=== PATIENT | female | born 1970 | race Caucasian/White ===

== ENCOUNTER 2017-01-06 23:52 | Emergency (ER) | payer SELFPAY ==
[~2017-01-06] VITALS: Ht 177.8 cm; Wt 75.0 kg
[~2017-01-06 23:52] MED LIST: METH5TAB5 PO; Metoprolol Tartrate PO
[2017-01-06 23:55] VITALS: BP 150/76; PULSE 154; RESP 15; O2SAT 99
--- NOTE | 2017-01-07 00:06 | ED.REPORT ---
HPI-General Illness Date of Service Jan 07, 2017 ED Provider: Navarro Cody MD Pt is a 46 y/o female with a history of intermittent afib and Graves' disease who presents to the ED c/o rapid afib onset 2300 today. Additional symptoms include chest pain, SOB, cough onset one week, fatigue, malaise, diarrhea, nausea and vomiting onset one week. She notes an unintended significant weight loss, which she now connects to her becoming hyperthyroid again. She denies fever, chills, or any other symptoms. She has only taken Advil and acetaminophen for her symptoms. Nursing Notes Stated Complaint: A-FIB,CHEST PAIN Chief Complaint: Dysrhythmia/Cardiac Nursing Notes Reviewed: Yes Allergies: Coded Allergies: No Known Allergies (Unverified , 01/07/17) Scheduled ([Metoprolol Tartrate]) 50 MG TABLET 50 MG PO BID Methimazole (Methimazole) 5 Mg Tablet 10 MG PO TID General Time Seen by MD: 00:05 Chief Complaint Other (Afib) Hx Obtained From: Patient, Spouse Arrived By: Walk-in Sudden in Onset?: Yes Onset Occurred: 1 - 4 hours ago Symptom Duration: Constant Quality: Painful Severity: Current: Mild Severity: Maximum: Moderate Recent Healthcare: No recent doctor visit, No recent hospitalization Similar Sx Previous: Yes Past Medical History Past Medical History Notes: Has had a bad reaction to anesthesia that required hospitalization in past. Past Medical History Graves' disease Hyperthyroid Afib Past Surgical History Reports: Family History Multiple female family members with Graves' disease. Smoking History Current Every Day Smoker Social History Alcohol Use: 1-3 per week Drug Use: THC Other Social History: Good social support, Local resident Ambulatory Status Independent Review of Systems Afib Full Review of Systems Constitutional: Reports: Fatigue, Malaise, Denies: Chills, Fever Respiratory: Reports: Non-productive cough (onset one week), Shortness of breath Cardiovascular: Reports: Chest pain GI: Reports: Diarrhea, Nausea (onset one week), Vomiting (onset one week) Complete sys rev & neg: except as marked. Physical Exam Vital Signs Vital Signs Date Time Temp Pulse Resp B/P Pulse Ox O2 Delivery O2 Flow Rate FiO2 01/07/17 02:47 89 24 102/50 98 01/07/17 02:14 84 19 91/50 97 Room Air 01/07/17 01:54 82 26 86/40 98 01/06/17 23:55 154 15 150/76 99 Room Air Initial VS: Reviewed Abdomen / GI: Soft, Non-tender Extremities: Vascular intact, Neuro intact, No swelling, No tenderness Skin: Warm, Dry, No cyanosis Neurologic: Alert, Oriented, Nonfocal Psychiatric: Mood/affect normal, Behavior normal, Normal thought content General/Constitutional: Awake, Alert Neck: Full range of motion, No JVD Prominent thyroid, 3x the normal size Respiratory / Chest: Atraumatic, Breath sounds NL, Breath sounds = bilat, No respiratory distress Cardiovascular: No gallop, No murmurs, No rubs Rapid irregular heart beat Interpretation & Diagnostics Lab Results Interpretation Result Diagram: 01/07/17 0008 01/07/17 0008 Test 01/07/17 00:08 White Blood Count 6.7th/mm3 (3.8-10.1) Red Blood Count 4.62mil/mm3 (3.90-5.20) Hemoglobin 14.1g/dL (12.0-15.6) Hematocrit 41.4% (35.0-46.0) Mean Corpuscular Volume 89.6fL (81-100) Mean Corpuscular Hemoglobin 30.5pg (27.0-35.0) Mean Corpuscular Hemoglobin Concent 34.1% (32.0-37.0) Red Cell Distribution Width 13.0% (12.3-15.4) Platelet Count 184bil/L (150-400) Neutrophils (%) (Auto) 43.9% (40-74) Lymphocytes (%) (Auto) 44.8% (14-46) Monocytes (%) (Auto) 8.5% (4-12) Eosinophils (%) (Auto) 2.1% (0-5) Basophils (%) (Auto) 0.6% (0-3) Hold Purple Top Tube Received (Received) Prothrombin Time 10.1sec (8.1-12.5) Prothromb Time International Ratio 0.95ratio Activated Partial Thromboplast Time 26.2sec (22.8-33.0) Hold Blue Top Tube Received (Received) Sodium Level 137mEq/L (134-144) Potassium Level 3.9mEq/L (3.5-5.2) Chloride Level 100mEq/L (97-108) Carbon Dioxide Level 22mmol/L (18-29) Blood Urea Nitrogen 16mg/dL (6-24) Creatinine 0.52mg/dL (0.57-1.00) Estimat Glomerular Filtration Rate 182mL/min (>59) Glucose Level 110mg/dL (60-99) Calcium Level 9.6mg/dL (8.5-10.1) Magnesium Level 1.9mg/dL (1.6-2.6) Total Bilirubin 0.2mg/dL (0.0-1.2) Aspartate Amino Transf (AST/SGOT) 22U/L (0-50) Alanine Aminotransferase (ALT/SGPT) 34U/L (0-32) Alkaline Phosphatase 84U/L (25-150) Troponin T 0.010ug/L (0.0-0.011) Pro-B-Type Natriuretic Peptide 211.2pg/mL (0-249) Total Protein 6.6g/dL (6.4-8.4) Albumin 3.9g/dL (3.4-5.0) Thyroid Stimulating Hormone (TSH) 0.005uIU/mL (0.450-4.500) Free Thyroxine 5.95ng/dL (0.82-1.77) Hold Red Top Tube Received (Received) Hold [place] Top Tube Received (Received) ECG Interpretation ECG Interpretation: Atrial fibrillation, rate [address] sagging and ischemic changes Time: 00:23 Interpreted by: ED physician X-Ray Chest Interpretation Chest Xray Interpretation: No cardiomegaloy or pneumonia appreciated. View: Portable, 1 view Interpretation / Wet Read by: Wet read ED physician Procedures Electrical Cardioversion Electrical Cardioversion: Resolution of lateral ischemic changes and atrial fibrillation Time: 01:41 Procedure Performed by: ED physician Indication: Atrial fibrillation Consent / Setup / Site Prep: Informed consent provided, Consent from patient , Time-out performed, Placed on oxygen, Placed on pulse oximeter, Place on quality assurance monitor body, Hand hygiene observed Procedural Sedation/Analgesia: Sedation: Propofol (forty mg) Joules: 50 Procedure Successful: Yes Post-Procedure Rhythm: Normal sinus rhythm Post-Procedure / Complications: No complications, Condition improved, Tolerated procedure well, Patient stable Proced Mod Sedation/Analgesia Respiratory therapy in room after procedure. Time: 01:38 Procedure Performed by: ED physician Sedation Time: Enter # minutes (5 minutes) Consent / Setup: Informed consent provided, Consent from patient, Time-out performed, Hand hygiene observed, Head of bed at 30-60 deg Indication: Other (Electrical cardioversion) Preparation: engine monitor applied, Pulse oximeter applied, Constant attendance, IV access established, Eval last meal time, Supplemental oxygen, Procedure explained, Suction available, End tidal CO2 mon applied VS Prior to Procedure: O2 saturation normal, Blood pressure normal, Respiratory rate normal Mallampati: Class & Anatomy: 2 top tonsil/uvula/palate Airway Exam: Normal anatomy CVS/Resp Exam: Normal breath sounds, Normal heart sounds Neuro Exam: Alert Sedation: Sedation: Propofol ASA Classification: 2 mild systemic disease Response During Procedure: Handled secretions adeq, Maintained airway well, Oxygenation stable, Sedation appropriate, Vital signs stable Complications During/After: None Reversal: None required Mental Status After Procedure: Alert, Oriented X3 Post-Procedure: Alert prior to discharge, Pt rtn pre-proc baseline, Vital signs normal Attestation: I performed procedure, I performed sedation Re-Eval/Medical Decision Med Decision/Clinical Course 46-year-old with intermittent atrial fibrillation presents with new onset atrial fibrillation again. She knows the time of onset exactly, and it is not been prolonged. Not on anticoagulation presently. Low risk for conversion. Indications for conversion include shortness of breath chest pressure and some mild lateral ischemia. Converted as detailed above with a single 50 J shock. Tolerated well and is discharged in stable condition. Source of Hx: Old records Time of Eval: 01:37 Re-Evaluation/Progress Note: Patient rechecked. Performed conscious sedation and cardiac inversion procedure. Time of Eval: 02:30 Patient Status: Condition improved Re-Evaluation/Progress Note: Patient rechecked. Discussed plan for discharge. Patient understands and agrees with plan. F/U instructions and RTER warnings given. All questions addressed at this time. Counseled Regarding: Diagnosis, Lab results, Need for follow-up, When/why to return to ED Discharge & Departure Primary Impression: Atrial fibrillation with RVR Additional Impression: Non-cardiac chest pain Disposition: Home Discharge Condition All VS Reviewed: Yes Condition: Stable Patient Instructions: A-fib (Atrial Fibrillation) (DC), Graves Disease (ED) Additional Instructions: You did have atrial fibrillation with rapid ventricular response. He works converted electrically. You do have hyperthyroidism, presumably due to your Graves' disease. This needs attention with your doctor as soon as possible. It is unfortunate we cannot prescribe metoprolol, since beta blockers or the mainstay of treatment in hyperthyroidism. Perhaps a different beta marek would be tolerable. Follow-up with your doctor as soon as possible this week. Return if any immediate issues. Referrals: Jeff Russell MD (PCP) Scribe Attestation Portions of this note were transcribed by Ene Sharp. I, Dr. Cody, personally performed the history, physical exam and medical decision-making; I reviewed and confirmed the accuracy of the information in the transcribed note. copies to: Jeff Russell MD, Christopher W MD Jan 07, 2017 00:06 Ene Sharp Jan 07, 2017 00:14
[2017-01-07] MEDS ORDERED: 0.9% Sodium Chloride 1,000 ML IV ONE (00:16)
[2017-01-07 00:24] LABS: BASOPHILS % (AUTO) 0.6 % (0-3); EOSINOPHILS % (AUTO) 2.1 % (0-5); MONOCYTES % (AUTO) 8.5 % (4-12); Mean Corpuscular Hemoglobin 30.5 pg (27.0-35.0); Mean Corpuscular Volume 89.6 fL (81-100); NEUTROPHILS % (AUTO) 43.9 % (40-74); Platelet Count 184 bil/L (150-400)
[2017-01-07 00:38] LABS: INR 0.95 ratio
[2017-01-07 00:51] LABS: TROPONIN T 0.01 ug/L (0.0-0.011)
[2017-01-07 01:02] LABS: Magnesium 1.9 mg/dL (1.6-2.6)
[2017-01-07] MEDS ORDERED: Propofol 10 mg/mL 20 mL Inj IVPUSH ONE (01:30)
[2017-01-07 01:54] VITALS: BP 86/40; PULSE 82; RESP 26; O2SAT 98
[2017-01-07 02:14] VITALS: BP 91/50; PULSE 84; RESP 19; O2SAT 97
[2017-01-07 02:47] VITALS: BP 102/50; PULSE 89; RESP 24; O2SAT 98
--- NOTE | 2017-01-07 10:37 | DRSVH ---
PROCEDURE: X-RAY CHEST ONE VIEW, PORTABLE ([id number]) INDICATIONS: afib new onset TECHNIQUE: One view of the chest was acquired. COMPARISON: [facility], , CHEST 1VW (PORTABLE), 10/24/2014, 7:36. FINDINGS: Surgical changes and devices: None. Lungs and pleura: No pleural effusions or pneumothorax. Lungs are clear. Mediastinum: Mediastinal contours appear normal. Heart size is normal. Bones and chest wall: No suspicious bony lesions. Overlying soft tissues appear unremarkable. IMPRESSION: No acute disease Dictated by: Ash Us M.D. on 01/07/2017 at 9:24 Approved by: Ash Us M.D. on 01/07/2017 at 9:36
== END 2017-01-07 02:50 | disposition home or self-care (01) ==
LOC: SED 23:52
DX: I48.91 Unspecified atrial fibrillation (principal); R07.89 Other chest pain; R05 Cough; R53.81 Other malaise; R19.7 Diarrhea, unspecified; R11.2 Nausea with vomiting, unspecified; R63.4 Abnormal weight loss; E05.00 Thyrotoxicosis with diffuse goiter without thyrotoxic crisis or storm; F17.200 Nicotine dependence, unspecified, uncomplicated
CPT/HCPCS: 36415; 71010; 80053; 83735; 83880; 84439; 84443; 84484; 85025; 85610; 85730; 92960; 93005; 94644; 96360; 99152; 99285; J2704; J7030